=== PATIENT | female | born 1985 | race Caucasian/White ===

== ENCOUNTER 2017-06-25 18:48 | Emergency (ER) | payer MEDICAID, OTHER | END 2017-06-25 20:53 | disposition left against medical advice (07) | LOC: ER 18:49 | DX: R11.10 Vomiting, unspecified (principal); Z53.21 Procedure and treatment not carried out due to patient leaving prior to being seen by health care provider ==

== ENCOUNTER 2023-12-01 05:18 | Emergency (ER) | payer MEDICAID ==
[~2023-12-01] VITALS: Ht 154.9 cm; Wt 43.8 kg
[~2023-12-01 05:18] MED LIST: ONDA8TAB9 PO; PANT-47 PO
[2023-12-01 05:22] VITALS: BP 140/92; PULSE 100; RESP 18; TEMP 98.4; O2SAT 97
[2023-12-01] MEDS ORDERED: normal saline 1000ML IV soln IVB ONE (05:30)
[2023-12-01 07:33] LABS: BASOPHILS # (AUTO) 0.1 X10'3 (0-0.2); BASOPHILS % (AUTO) 0.6 % (0-1); EOSINOPHILS # (AUTO) 0.1 X10'3 (0-0.9); EOSINOPHILS % (AUTO) 0.7 % (0-6); HEMATOCRIT 41.6 % (35.0-45.0); HEMOGLOBIN 13.9 g/dl (12.0-16.0); LYMPHOCYTES # (AUTO) 1.7 X10'3 (1.1-4.8); LYMPHOCYTES % (AUTO) 15.3 % (21-51); MEAN CORPUSCULAR HEMOGLOBIN 31.6 PG (27.0-31.0); MEAN CORPUSCULAR HGB CONC 33.4 g/dL (33.0-36.5); MEAN CORPUSCULAR VOLUME 94.8 FL (78-98); MEAN PLATELET VOLUME 7.3 FL (7.4-10.4); MONOCYTES # (AUTO) 0.7 X10'3 (0-0.9); MONOCYTES % (AUTO) 6.6 % (2-12); NEUTROPHILS # (AUTO) 8.4 X10'3 (1.8-7.7); NEUTROPHILS % (AUTO) 76.8 % (42-75); PLATELET COUNT 526 X10'3 (140-440); RED BLOOD COUNT 4.39 X10'6 (4.20-5.60); RED CELL DISTRIBUTION WIDTH 14.3 % (11.5-14.5)
[2023-12-01 07:43] LABS: ALANINE AMINOTRANSFERASE 19 U/L (12-78); ALBUMIN 4.3 G/DL (3.4-5.0); ALBUMIN/GLOBULIN RATIO 1.3 (1.1-1.5); ALKALINE PHOSPHATASE 72 IU/L (46-116); ANION GAP 10 (8-16); ASPARTATE AMINO TRANSFERASE 12 U/L (10-37); BILIRUBIN,TOTAL 0.7 MG/DL (0.1-1.0); BLOOD UREA NITROGEN 17 MG/DL (7-18); BUN/CREATININE RATIO 25.4 (10.0-20.0); CHLORIDE 109 MMOL/L (99-107); CREATININE 0.67 MG/DL (0.40-0.90); GLUCOSE 105 MG/DL (70-104); LIPASE 25 U/L (16-77); POTASSIUM 3.6 MMOL/L (3.5-5.1); SODIUM 144 MMOL/L (135-145); TOTAL CARBON DIOXIDE 25.2 MMOL/L (24-32); TOTAL PROTEIN 7.7 G/DL (6.4-8.2); eCRCL 79 ML/MIN; eGFR > 90 ML/MIN
== END 2023-12-01 08:02 | disposition left against medical advice (07) ==
LOC: ER 05:18
DX: R11.2 Nausea with vomiting, unspecified (principal); R19.7 Diarrhea, unspecified; R10.84 Generalized abdominal pain; Z53.21 Procedure and treatment not carried out due to patient leaving prior to being seen by health care provider
CPT/HCPCS: 36415; 80053; 83690; 85025

== ENCOUNTER 2024-02-10 14:28 | Emergency (ER) | payer MEDICAID ==
[~2024-02-10] VITALS: Ht 152.4 cm; Wt 42.2 kg
[2024-02-10 15:02] VITALS: BP 129/83; PULSE 89; RESP 18; TEMP 97.8; O2SAT 100
== END 2024-02-10 19:03 | disposition left against medical advice (07) ==
LOC: ER 14:28
DX: M79.605 Pain in left leg (principal); Z53.21 Procedure and treatment not carried out due to patient leaving prior to being seen by health care provider

== ENCOUNTER 2024-12-14 07:21 | Inpatient (IN) | payer MEDICAID ==
[~2024-12-14] VITALS: Ht 152.4 cm; Wt 51.4 kg
--- NOTE | 2024-12-14 07:40 | Physician Documentation ---
Addendum CHIEF COMPLAINT/HPI: The patient is a 39-year-old female with a history of cyclic vomiting who rep orts that she woke up about 4:00 a.m. today with nausea, vomiting and severe lower abdominal pain. REVIEW OF SYSTEMS: Constitutional: Denies chills, fatigue, fever, weight gain or weight loss. HEENT: Denies hearing loss, sinus pressure or visual changes. Respiratory: Denies cough, shortness of breath or wheezing. Cardiovascular: Denies chest pain, pain while walking (claudication), edema or palpitations. Gastrointestinal: Nausea, vomiting and lower abdominal pain. Genitourinary: Denies painful urination (dysuria), excessive amount of urine (polyuria) or urinary frequency. Metabolic/Endocrine: Denies cold intolerance, heat intolerance, excessive thirst (polydipsia) or excessive hunger (polyphagia). Neurological: Denies dizziness, extremity numbness, extremity weakness, headaches, seizures or tremors. Psychiatric: Denies anxiety or depression. Integumentary: Denies breast discharge, breast lump, hives, mole change(s), rash or skin lesion. Musculoskeletal: Denies back pain, joint pain, joint swelling or neck pain. Hematologic: Denies easily bleeding, easily bruises, lymphedema or issues with blood clots. Immunologic: Denies food allergies or seasonal allergies. PHYSICAL EXAMINATION: Vitals and nursing note reviewed. Constitutional: General: Patient is awake, alert, oriented x 4 in no acute distress and well appearing. Speech is clear and lucid. Appearance: Normal appearance. Patient is not ill-appearing, toxic-appearing or diaphoretic. HENT: Head: Normocephalic and atraumatic. Mouth/Throat: Mouth: Mucous membranes are moist. Pharynx: Oropharynx is clear. Eyes: General: No scleral icterus. Extraocular Movements: Extraocular movements intact. Pupils: Pupils are equal, round, and reactive to light. Neck: Supple, no Kernig or Brudzinski sign. Cardiovascular: Rate and Rhythm: Normal rate and regular rhythm. Heart sounds: No murmur heard. Pulmonary: Effort: No respiratory distress. Breath sounds: No wheezing, rhonchi or rales. Abdominal: General: There is no distension. Palpations: There is no fluid wave, hepatomegaly or mass. Tenderness: There is moderate lower abdominal tenderness. There is no guarding. Musculoskeletal: General: No swelling or deformity. Skin: Coloration: Skin is not jaundiced. Findings: No erythema or rash. Neurological: Mental Status: Patient is alert. MEDICAL DECISION MAKING: This 39-year-old female with a history of cyclic vomiting presented here 3-1/2 hours ago in his required several doses of opioids. Laboratory studies and CT abdomen pelvis do not show acute findings to account for her pain. 2:04 p.m.: She continues to have intractable abdominal pain and I will get her admitted. Departure Disposition: ADMITTED INPATIENT Admitted to Inpatient Unit: to hospitalist Impression: Primary Impression: Cyclical vomiting Additional Impression: Abdominal pain Condition: [place] Ji MD Dec 14, 2024 07:40
[2024-12-14 07:48] LABS: MEAN PLATELET VOLUME 7.1 FL (7.4-10.4); RED CELL DISTRIBUTION WIDTH 13.7 % (11.5-14.5)
[2024-12-14 07:59] LABS: CREATININE 0.64 MG/DL (0.40-0.90); TOTAL CARBON DIOXIDE 24.5 MMOL/L (24-32); eCRCL 86 ML/MIN; eGFR > 90 ML/MIN
[2024-12-14] MEDS: ondansetron/PF 4mg/2ml inj IV ONE ×2 (08:28→14:30)
[2024-12-14] MEDS: HYDROmorphone inj. 0.5 MG/0.5 ML DISP.SYRIN IV ONE ×3 (08:29→14:30)
[2024-12-14 10:32] LABS: LEUKOCYTE ESTERASE ,URINE NEGATIVE (Neg); NITRITES, URINE NEGATIVE (Neg); OCCULT BLOOD,URINE NEGATIVE (Neg)
[2024-12-14 10:33] LABS: URINE HCG NEGATIVE (NEG)
[2024-12-14 11:08] LABS: UA COLLECTION TYPE CLN CATCH MIDSTREAM
[2024-12-14 11:10] LABS: SQUAMOUS EPITHELIAL CELL,UR MANY /LPF (FEW)
[2024-12-14 11:12] LABS: MUCUS STRANDS FEW /LPF (Neg); RENAL CELLS, URINE MODERATE /HPF
[2024-12-14] MEDS ORDERED: iohexol 300mg/ml 100ml inj. ONE (11:51)
--- NOTE | 2024-12-14 12:34 | RADIOLOGY REPORT ---
Exam: CT CT ABDOMEN PELVIS W/ IV CONTRAST History: Nausea, vomiting and abdominal pain COMPARISON: CT CT ABDOMEN PELVIS on DOS: 12/08/23 Technique: Multidetector spiral CT of the abdomen and pelvis was performed from lung bases to pubic symphysis. Intravenous contrast was administered during this examination. Portal venous imaging was obtained. Axial, coronal and sagittal multiplanar reformats were performed by the technologist on a separate workstation. Radiation Dose : 1. Abdomen/Pelvis: CTDIvol 7.1 mGy, DLP 125.27 mGy*cm. CONTRAST: Type of contrast: Omnipaque 300 Contrast injected: 100 ml Findings: Lung Bases: No acute or significant lung base finding. Normal heart size. No pleural or pericardial effusion. Liver: The liver is normal in size. No focal lesions. Normal hepatic vascular enhancement. Gallbladder and biliary Tree: Unremarkable Spleen: Unremarkable Pancreas: The pancreas is normal in appearance without focal lesions or abnormal enhancement. Adrenal Glands: Unremarkable Kidneys: No hydronephrosis. Bladder: Unremarkable Bowel: The stomach is grossly normal in appearance. Small bowel and colon are normal in caliber and distribution. Normal appendix is visualized in the right lower quadrant without findings of appendicitis. Borderline diffuse colonic wall thickening likely explained by poor distension. Ascites: Absent Lymphadenopathy: No mesenteric, retroperitoneal or periportal lymphadenopathy. Abdominal wall and Mesentery: Unremarkable. Vasculature: The visualized abdominal aorta is normal in size and caliber. Abdominal and pelvic vessels demonstrate normal enhancement. Pelvic Organs: Unremarkable Musculoskeletal: No aggressive focal bony lesions, acute fractures or dislocation. IMPRESSION: Borderline diffuse colonic wall thickening likely explained by poor distension please correlate with any concern for a mild colitis. Otherwise no clear cause for symptoms. Radiation optimization: All CT scans at this facility use at least one of these dose optimization techniques: automated exposure control mA and/or kV adjustment per patient size (includes targeted exams where dose is matched to clinical indication) or iterative reconstruction.
[2024-12-14] MEDS ORDERED: potassium Cl 20 mEq SR tablet PO PRN (15:15)
[2024-12-14] MEDS ORDERED: magnesium sulf-water 2g/50mL 50 ML IV PRN (15:15)
[2024-12-14] MEDS ORDERED: mag hydrox/Alum hydrox/simeth 30ml oral suspension PO PRN (15:15)
[2024-12-14] MEDS ORDERED: magnesium sulf-water 4G/100mL 100 ML IV PRN (15:15)
[2024-12-14] MEDS ORDERED: magnesium Cl slow-release 64mg tablet PO PRN (15:15)
[2024-12-14] MEDS ORDERED: metoclopramide 5 mg/ml inj IV PRN (15:15)
[2024-12-14] MEDS ORDERED: ondansetron/PF 4mg/2ml inj IV PRN (15:15)
[2024-12-14] MEDS ORDERED: HYDROmorphone inj. 0.5 MG/0.5 ML DISP.SYRIN IV PRN (15:15)
[2024-12-14] MEDS ORDERED: magnesium hydroxide 30ml (MOM) UD suspension PO PRN (15:15)
[2024-12-14] MEDS ORDERED: normal saline 1000ml 1,000 ML IV SCH (15:15)
[2024-12-14] MEDS: normal saline 1000ml 1,000 ML IV SCH (15:52)
--- NOTE | 2024-12-14 15:59 | ELECTROCARDIOGRAPH REPORT ---
[facility], [place] Test Date: 2024-12-14 Test Time: 15:55:56 Pat Name: TIM CRISTINA Department: [facility] Patient ID: [facility]-[id number] Room: ED 6 1 Gender: F Climatologist: : [id number] Requested By: INDIA MORRISON Order Number: [id number] Reading MD: Measurements Intervals [place] Rate: 54 P: 36 NE: 110 QRS: 58 QRSD: 111 T: 39 QT: 494 QTc: 469 Interpretive Statements Sinus bradycardia Borderline short NE interval RSR' in V1 or V2, right VCD or RVH Baseline wander in lead(s) V2 Please click the below link to view image of tracing.
--- NOTE | 2024-12-14 16:03 | RADIOLOGY REPORT ---
CHEST RADIOGRAPH Indication: to rule out pneumonia Technique: Single frontal view of the chest was obtained COMPARISON: None FINDINGS: Lines and Tubes: None Lungs: Clear Pleura: No effusion. No pneumothorax. Cardiomediastinal contours: Unremarkable Bones: Unremarkable IMPRESSION: No acute disease.
[2024-12-14] MEDS ORDERED: METF-900 PO (16:19)
[2024-12-14] MEDS ORDERED: EXEM25TA5 PO (16:19)
[2024-12-14 16:23] LABS: URINE AMPHETAMINE SCREEN NEGATIVE (Neg); URINE BARBITUATE SCREEN NEGATIVE (Neg); URINE BENZODIAZEPINES SCREEN NEGATIVE (Neg); URINE CANNABINOID SCREEN POSITIVE (Neg); URINE COCAINE SCREEN NEGATIVE (Neg); URINE METHADONE SCREEN NEGATIVE (Neg); URINE OPIATE SCREEN POSITIVE (Neg); URINE PHENCYCLIDINE SCREEN NEGATIVE (Neg)
--- NOTE | 2024-12-14 16:44 | RADIOLOGY REPORT ---
Exam: DI ABDOMEN,SINGLE VIEW(KUB) Indication: ABD pain Comparison: Contrasted CT scan of the abdomen and pelvis performed earlier same day about 4.5 hours earlier. Technique: Supine portable AP views of the abdomen were performed. Findings: No abnormal bowel dilatation. Gas is present throughout the colon. No abnormal calcifications overlying the urinary tract. There is residual contrast in the urinary tract. There is slight lumbar levoscoliosis. Gallstones and possible wall thickening of the gallbladder fundus are not well characterized here, better characterized on prior CT scan. Impression: 1. No evidence of bowel obstruction. 2. Cholelithiasis and possible gallbladder wall thickening, better characterized on CT scan of the abdomen from earlier same day. Recommend follow-up right upper quadrant ultrasound for better characterization.
[2024-12-14 16:50] LABS: APTT 26 SECONDS (22-32); INR 1.0 INR
[2024-12-14 17:06] LABS: CREATININE 0.65 MG/DL (0.40-0.90); PHOSPHORUS 2.5 MG/DL (2.3-4.5); PRO BRAIN NATRIURETIC PEPTIDE 791 PG/ML (0-125); TOTAL CARBON DIOXIDE 21.9 MMOL/L (24-32); eCRCL 84 ML/MIN; eGFR > 90 ML/MIN
[2024-12-14 17:13] LABS: HCG SERUM QL NEGATIVE
[2024-12-14] MEDS: levoFLOXACIN-Levaquin 500mg/D5 100 ML IV SCH (17:22)
[2024-12-14] MEDS: metroNIDAZOLE-Flagyl 500mg/NS 100 ML IV SCH (17:22)
--- NOTE | 2024-12-14 17:53 | HISTORY AND PHYSICAL-Residence ---
History & Physical Providers to CC Resident Creating Document: INDIA MARRERO, RES ~ History of Present Illness Primary Medical Doctor: Unknown Reason for Admit\Complaint: Abdominal pain and vomiting History of Present Illness A 39-year-old female with past medical history of left breast cancer status post mastectomy and chemotherapy in 2019 presented to ER with chief complaint of abdominal pain and vomiting. Patient stated that she woke up around 4:00 a.m. today morning to go to washroom, and she has gradually progressive, squeezing type of constant RUQ abdominal pain, radiating to epigastric region with severity of 8/10 in intensity associated nausea, multiple episodes of yellow colored vomiting and chills. Patient is able to pass the gas, the last bowel movement was today morning. She denies fever, abdominal distention, blood in vomit, constipation, diarrhea, bleeding per rectum, heart burn, dyspepsia and dyspepsia, chest pain. She denies similar complaint in the past. She denies sick contact or recent travel or recent food intake outside. Allergies: Coded Allergies: No Known Allergies (Unverified , 02/10/24) Home Medications Home Medications Active Zofran Odt (Ondansetron) 8 Mg Tab.rapdis 8 Mg PO QID PRN Reported Exemestane 25 Mg Tablet 25 Mg PO DAILY Metformin ER* (Metformin HCl) 500 Mg Tab.sr.24h 1 Tab PO DAILY Past Medical History Past Medical History Left breast cancer with status post mastectomy and chemotherapy in 2019 Past Surgical History Surgical History Comment Left breast cancer with status post mastectomy and chemotherapy in 2019 Past Social History Social History Comment Patient quit marijuana 1 year ago Smoking: Non-Smoker Alcohol Use: None Drug Use: None, Marijuana Lives In: Home ROS ROS Constitutional: Reports chills, No fever, dizziness, weight gain or loss, night sweats Eyes: No pain, erythema, discharge, blurring of vision ENT: No sore throat, epistaxis, tinnitus Cardiovascular:No chest pain, palpitations, syncope, lower extremity edema, paroxysmal nocturnal dyspnea Respiratory: No Shortness of breath and cough, No hemoptysis. Gastrointestinal: Reports Abdominal pain, vomiting,nausea and no melena. Normal appetite. No constipation,diarrhea, hematemesis, Musculoskeletal: No swelling or edema of extremities. Integumentary: No change in skin, hair, nails. No swelling, bruising, abrasions Neurologic: No weakness,No headache, neck pain, numbness or tingling of the extremities, Psychiatric: No delusions, depression, loss of interest in normal activity or change in sleep pattern, hallucinations, suicidal ideations Endocrine: No fatigue, no weakness. polydipsia, polyuria, change in appetite, heat or cold intolerance, sweating, dry skin Hematological: No bleeding, petechiae, bruising Allergies: No asthma or urticaria Exam Vitals: Vital Signs Date Time Temp Pulse Resp B/P (MAP) Pulse Ox O2 Delivery O2 Flow Rate FiO2 12/14/24 17:28 58 19 127/70 (89) 100 0 12/14/24 07:23 96.7 General: Awake , alert and oriented to time,place, person, acute distress HEENT: Atraumatic, normocephalic, PERRLA, EOMI, anicteric sclera ; pink conjunctiva, moist mucos membranes Neck: Trachea midline. Supple, normal range of motion, no JVD, no lymphadenopathy Chest and Respiratory: Equal breath sounds bilaterally, no tachypnea, wheezing, ronchi,rubs .Chest wall is symmetric and without deformity. Cardiac: S1, S2 heard,Regular rate and rhythm, no murmurs heard. Abdomen: Soft, RUQ mild tenderness on palpation, No guarding or rigidity, Zamarripa's sign negative. normal bowel sounds x4 quadrant, no hepatosplenomegaly MSK: Range of motion of all extremities are normal. There is no joint pain or joint swelling or joint erythema. There is no muscle pain or tenderness or swelling. Extremities: warm, well-perfused, No cyanosis, clubbing, 2+ pulses felt Neurological: Speech is clear, alert, and oriented x 4. No sensory or motor deficits. Cranial nerves II-XII intact. Skin: Warm and dry Diagnostic Data Last Recorded Lab Results: 12/14/24 0735 12/14/24 1612 Diagnostic Data: Laboratory Tests Test 12/14/24 16:12 Prothrombin Time 10.7 SECONDS (9.0-12.0) INR International Normalized Ratio 1.0 INR Activated Partial Thromboplast Time 26 SECONDS (22-32) Coagulation Comments Advance Care Planning Advanced Care plannin - 30 Minutes Additional Plan Possible Symptomatic cholelithiasis Patient has RUQ abd pain, nausea, vomiting Borderline diffuse colonic wall thickening likely explained by poor distension please correlate with any concern for a mild colitis. KUB abdomen showed Cholelithiasis and possible gallbladder wall thickening. WBC are in normal limits Lipase is 25, AST, ALT and ALP are in normal limits BNP 791 beta HCG is negative Urinalysis normal Urine toxicology positive for opiates and cannabinoids Vitals are stable IV Protonix 40 mg q.12h Pain management with IV morphine 1 mg and Dilaudid 1 mg q.4h NPO for now Follow up with ultrasound abdomen Colitis likely bacterial Started on IV levofloxacin and IV Flagyl Mild metabolic acidosis Bicarbonate is 21.9 Code status: Full code DVT prophylaxis : Heparin GI prophylaxis: Protonix Nutrition: NPO for now Line/tube: PIV Analgesia/sedation: Dilaudid Disposition: Continue medical management Resident attestation The above note has been reviewed and supervised by a senior resident PGY3 Patient was seen, examined and discussed with the attending physician Jermaine Marrero MD Internal Medicine Resident, PGY 1 Date of Service: Dec 14, 2024 Billing Provider: DANITZA ARMSTRONG MD Common Visit Codes: [id number] INP/OBS CARE (HIGH) Secondary Visit Codes: [id number] CARE PLAN 30 MINUTES INDIA MARRERO, RES Dec 14, 2024 17:53 DANITZA ARMSTRONG MD Dec 15, 2024 23:00
[2024-12-14 20:00] VITALS: RESP 22; O2SAT 100
[2024-12-14] MEDS: docusate sod 100mg capsule PO SCH (20:00)
[2024-12-14] MEDS: heparin, porcine 5000 units/ml vial SQ SCH (20:00)
[2024-12-14] MEDS ORDERED: heparin, porcine 5000 units/ml vial SQ SCH (20:00)
[2024-12-14] MEDS: K and/or MAG REPLACEMENT MC SCH (20:00)
[2024-12-14] MEDS: ketorolac trometh 30MG/ML vial 30 MG/ML VIAL IM ONE (20:07)
[2024-12-14] MEDS: potassium Cl 20 mEq SR tablet PO PRN (20:17)
--- NOTE | 2024-12-14 20:24 | RADIOLOGY REPORT ---
INDICATION: ABDOMEN PAIN, ABNORMAL XRAY TECHNIQUE: Multiple real-time sonographic images were obtained of the right upper quadrant. COMPARISON: None FINDINGS: Hepatic echogenicity is normal. The liver measures 14.5 cm. The common duct measures 6 mm. Multiple echogenic shadowing stones in the gallbladder. Wall thickness measures 3.7 mm. Reportedly positive sonographic Zamarripa's sign. The right kidney measures 9.9 cm. No visualized hydronephrosis, stone, or lesion. The pancreas is not well visualized due to overlying bowel gas. No visualized ascites. IMPRESSION: 1. Exam consistent with acute calculus cholecystitis.
[2024-12-14 22:00] VITALS: BP 114/56; PULSE 55; RESP 16; TEMP 97.2; O2SAT 98
[2024-12-15] VITALS (20 sets, daily range): BP systolic 110–143; BP diastolic 68–109; PULSE 56–97; RESP 12–21; TEMP 97.8–98.6; O2SAT 95–100
[2024-12-15 04:51] LABS: MEAN PLATELET VOLUME 7.3 FL (7.4-10.4); RED CELL DISTRIBUTION WIDTH 14.2 % (11.5-14.5)
[2024-12-15 05:09] LABS: CHOL/HDL RATIO 6.7 (0.00-4.99); CREATININE 0.51 MG/DL (0.40-0.90); LDL CHOLESTEROL 170 MG/DL (50-100); TOTAL CARBON DIOXIDE 20.3 MMOL/L (24-32); eCRCL 107 ML/MIN; eGFR > 90 ML/MIN
[2024-12-15] MEDS: potassium Cl 40MEQ/1/2NS 520ml 520 ML IV PRN (08:54)
[2024-12-15] MEDS ORDERED: normal saline 1000ml 1,000 ML IV ONE (09:00)
[2024-12-15] MEDS: normal saline 500ml IV soln 500 ML IV ONE (10:08)
[2024-12-15] MEDS ORDERED: BUPIVAcaine 2.5mg/ml inj 50ml vial (contains preservative) ONE (14:49)
[2024-12-15] MEDS ORDERED: LIDOcaine 1% 30ml preserv. free vial ONE (14:49)
[2024-12-15] MEDS ORDERED: INDOCYANINE GREEN 25 MG/10 ML VIAL IV ONE (14:49)
--- NOTE | 2024-12-15 15:28 | PROGRESS NOTE- Residence ---
Progress Note - Resident Providers to CC Resident Creating Document: INDIA MARRERO, RES ~ Central Line/PICC still needed: N\A Mccann-Non Protocol Mccann Indications Met/Not Met: F/C Indications Not Met Antibiotic Timeout Antibiotic Ordered?: Yes Subjective Patient was seen at bedside. Patient complains of severe right upper quadrant pain severity of 8/10 in intensity. Vomiting and nausea improved with IV Reglan. Patient scheduled for cholecystectomy today evening by Dr. Brink Objective Vital Signs Date Time Temp Pulse Resp B/P (MAP) Pulse Ox O2 Delivery O2 Flow Rate FiO2 12/15/24 14:59 87 16 100 12/15/24 11:00 98.0 124/85 (98) Room Air 12/15/24 10:30 0.0 Result Diagram: 12/15/2443912/15/24439 Awake , alert and oriented to time,place, person, acute distress HEENT: Atraumatic, normocephalic, PERRLA, EOMI, anicteric sclera ; pink conjunctiva, moist mucos membranes Neck: Trachea midline. Supple, normal range of motion, no JVD, no lymphadenopathy Chest and Respiratory: Equal breath sounds bilaterally, no tachypnea, wheezing, ronchi,rubs .Chest wall is symmetric and without deformity. Cardiac: S1, S2 heard,Regular rate and rhythm, no murmurs heard. Abdomen: Soft, RUQ moderate tenderness on palpation, No guarding or rigidity, Zamarripa's sign negative. normal bowel sounds x4 quadrant, no hepatosplenomegaly MSK: Range of motion of all extremities are normal. There is no joint pain or joint swelling or joint erythema. There is no muscle pain or tenderness or swelling. Extremities: warm, well-perfused, No cyanosis, clubbing, 2+ pulses felt Neurological: Speech is clear, alert, and oriented x 4. No sensory or motor deficits. Cranial nerves II-XII intact. Skin: Warm and dry Coagulation Studies Laboratory Tests Test 12/14/24 16:12 Prothrombin Time 10.7 SECONDS (9.0-12.0) INR International Normalized Ratio 1.0 INR Activated Partial Thromboplast Time 26 SECONDS (22-32) Coagulation Comments Advance Care Planning Advanced Care plannin - 30 Minutes Assessment Assessment A 39 years old female patient with no significant past medical history admitted with acute calculous cholecystitis. Patient scheduled for cholecystectomy for today evening by Dr. Brink Plan Plan Acute calculous cholecystitis Patient has RUQ abd pain, nausea, vomiting Borderline diffuse colonic wall thickening likely explained by poor distension please correlate with any concern for a mild colitis. KUB abdomen showed Cholelithiasis and possible gallbladder wall thickening. WBC are in normal limits Lipase is 25, AST, ALT and ALP are in normal limits BNP 791 beta HCG is negative Urinalysis normal Urine toxicology positive for opiates and cannabinoids Vitals are stable IV Protonix 40 mg q.12h Pain management with IV morphine 1 mg and Dilaudid 1 mg q.4h NPO for now Follow up with ultrasound abdomen 12/15/24: Ultrasound showed acute calculus cholecystitis. Pain management with Toradol and Dilaudid 2 mg q.4h Patient scheduled for cholecystectomy today evening Colitis likely bacterial Continue IV levofloxacin and IV Flagyl Mild metabolic acidosis Bicarbonate is 21.9 Code status: Full code DVT prophylaxis : Scds GI prophylaxis: Protonix Nutrition: NPO for now Line/tube: PIV Analgesia/sedation: Dilaudid/Toradal Disposition: Continue medical management Resident attestation The above note has been reviewed and supervised by a senior resident PGY3 Patient was seen, examined and discussed with the attending physician Jermaine Marrero MD Internal Medicine Resident, PGY 1 Date of Service: Dec 15, 2024 Billing Provider: DANITZA ARMSTRONG MD Common Visit Codes: [id number] INP/OBS CARE(HIGH) INDIA MARRERO, RES Dec 15, 2024 15:28 DANITZA ARMSTRONG MD Dec 15, 2024 23:01
--- NOTE | 2024-12-15 15:28 | CONSULTATION REPORT ---
History of Present Illness Providers to CC CC: ADRIENNE COONEY MD ~ Reason for Admit\Admit Dx: Acute calculous cholecystitis Refering MD: Unknown History of Present Illness 39-year-old woman presented yesterday with epigastric and right upper quadrant abdominal pain that radiated the back with nausea and vomiting. Workup included an ultrasound that showed cholelithiasis with sonographic Zamarripa's sign. She was admitted and surgical consultation requested. Patient continues to have epigastric and right upper quadrant abdominal pain. Zamarripa's sign. Leukocytosis. Allergies: Coded Allergies: No Known Allergies (Unverified , 02/10/24) Home Medications Home Medications Active Zofran Odt (Ondansetron) 8 Mg Tab.rapdis 8 Mg PO QID PRN Reported Exemestane 25 Mg Tablet 25 Mg PO DAILY Metformin ER* (Metformin HCl) 500 Mg Tab.sr.24h 1 Tab PO DAILY Past Medical History Medical History Comment Type 2 diabetes Past Surgical History Surgical History Comment None reported Past Family History Family History Comment Not applicable Past Social History Social History Comment Not applicable Physical Exam Last Vital Signs Recorded: Temperature: 98.0, Source: Oral, Heart Rate: 87, Respiratory Rate: 16, BP: 124/85, Pulse Oximetry: 100, Weight: 51.360 General Appearance: alert, WD/WN EENT: PERRL/EOMI; No: scleral icterus (R), scleral icterus (L) Neck: normal inspection, full range of motion, supple Respiratory: lungs clear Cardiovascular: normal peripheral pulses, regular rate, rhythm Gastrointestinal Softly distended No palpable masses or hernias Epigastric and right upper quadrant tenderness to palpation with subtle Zamarripa's sign Rectal: deferred Back: normal inspection, no CVA tenderness Extremities: no edema Neurologic: oriented x4 Psychiatric: normal mood/affect; No: anxiety Skin: normal color Lymphatic: no adenopathy Results Diagram Lab Result Diagram: 12/15/2443912/15/24439 Assessment/Plan Problems/Diagnosis: (1) Acute calculous cholecystitis Assessment & Plan: + the risks, benefits, and alternatives to a robotic assisted, laparoscopic possible open cholecystectomy were discussed with the patient. Risks include, but are not limited to, bleeding, infection, injury to intra-abdominal structures, injury to the biliary tree, postoperative bile leak and retained common bile duct stone. Patient verbalized understanding and wishes to proceed with surgery. We will do so today as soon as possible. ADRIENNE COONEY MD Dec 15, 2024 15:28
[2024-12-15] MEDS ORDERED: midazolam 1 mg/ML 2ml injection ONE (15:29)
[2024-12-15] MEDS ORDERED: fentaNYL/PF 50MCG/1 ML 2ML syringe ONE (15:29)
[2024-12-15] MEDS ORDERED: propofol inj 20 ML IV ONE (15:31)
[2024-12-15] MEDS ORDERED: rocuronium 10mg/ml inj IV ONE (15:31)
[2024-12-15] MEDS ORDERED: dexamethasone sod phosphate 4mg/ml inj. ONE (15:39)
[2024-12-15] MEDS: INDOCYANINE GREEN 25 MG/10 ML VIAL IV ONE (16:00)
[2024-12-15] MEDS ORDERED: HYDROmorphone/PF 0.2 MG/ML SYRINGE IV PRN (16:05)
[2024-12-15] MEDS ORDERED: hydrALAZINE 20mg/ml inj. IV PRN (16:05)
[2024-12-15] MEDS ORDERED: labetalol 20mg/4ml (5mg/ml) syringe IV PRN (16:05)
[2024-12-15] MEDS ORDERED: fentaNYL/PF 50MCG/1 ML 2ML syringe IV PRN (16:05)
[2024-12-15] MEDS ORDERED: ondansetron/PF 4mg/2ml inj IV PRN ×2 (16:05→17:15)
[2024-12-15] MEDS ORDERED: ondansetron/PF 4mg/2ml inj ONE (16:47)
[2024-12-15] MEDS ORDERED: glycopyrrolate 0.2mg/ml inj ONE (16:47)
[2024-12-15] MEDS ORDERED: morphine 10mg/ml inj. ONE (17:05)
[2024-12-15] MEDS ORDERED: HYDROcodone/acetaminophen 5mg/325mg tablet PO PRN (17:15)
[2024-12-15] MEDS ORDERED: PCA WASTE DOCUMENTATION 1 MG ML MC SCH (17:15)
[2024-12-15] MEDS: acetaminophen 1,000mg/100ml IV 100 ML IV PRN (17:15)
[2024-12-15] MEDS: HYDROmorphone/PF 0.2 MG/ML SYRINGE IV PRN (17:22)
[2024-12-15] MEDS: ketorolac trometh 30MG/ML vial 30 MG/ML VIAL IV PRN (17:24)
--- NOTE | 2024-12-15 17:35 | OPERATIVE REPORT ---
Operative Report Providers to CC CC: COLLINS COONEY MD ~ Date of Procedure: Dec 15, 2024 Pre-Operative Diagnosis: Acute calculous cholecystitis Post-Operative Diagnosis SAME as PRE-Op Procedure Performed Robotic assisted, laparoscopic cholecystectomy Surgeon: Collins Cooney MD FACS Beekeeper Farmer None Anesthesiologist: Atif Carrera Type of Anesthesia: General Findings: Contracted gallbladder Suspicious looking neoplasm on the anterior wall of the gallbladder measuring about 1 cm in diameter Critical view of safety obtained and confirmed using fluorescent cholangiography/firefly Wound Class II Complications None Prosthetics\Implants used: None Estimated Blood Loss: 10 cc Specimen Removed: Gallbladder with suspicious looking neoplasm Description of Procedure: Patient was brought to the operating room and identified by the nursing staff and the attending physician. Patient was placed supine and general anesthesia w as induced. A supraumbilical, midline incision was made, long enough to accommodate a 12 mm Gonzalez port. Gonzalez technique was used to gain entry into the abdomen. Stay sutures were placed in the Gonzalez port anchored to the fascia. Abdomen was insufflated without incident. Laparoscope was inserted and the abdomen surveyed. Secondary, 8.5 mm robotic trochars were placed in the left upper quadrant and right lateral abdomen. Robotic arm was docked to the patient. Robotic instruments were guided intra- abdominally under laparoscopic visualization. Gallbladder was readily identified. On the anterior aspect of the gallbladder near the fundus, there was a suspicious looking neoplasm the measured about 1 cm in diameter. There were no other gross findings suspicious for metastatic disease. There was an area of the fundus that I was able to grasp to retract the gallbladder. Fundus of the gallbladder was grasped and retracted over the dome of the liver. Infundibulum was retracted towards the right lower quadrant. Firefly technology was used to obtain a fluorescent cholangiogram and visualize the pertinent anatomy. Cystic duct was clearly visualized, however, it appeared to be behind the infundibulum and gallbladder was nonfilling with a contrast. Gallbladder was initially mobilized from a top-down approach taking care to avoid any rupture or disruption of the area near the suspicious neoplasm. Once the infundibulum was reached, on the posterior aspect, the right hepatic artery had a tortuous loop that was somewhat adherent to the infundibulum. There appeared to be an impacted large stone in the gallbladder neck. I was able to dissect the anterior and posterior branches of the cystic artery away from the gallbladder to the level of the loop of right hepatic artery. I was able to circumferentially dissect these and place hemostatic clips on them. The hepatic artery was then dissected away from the gallbladder neck. Subsequently I was able to circumferentially dissect cystic duct. Fluorescent cholangiogra phy/firefly revealed filling of the proximal cystic duct, however, the distal cystic duct and neck of the gallbladder did not fill. Clips were placed in the cystic duct divided. Gallbladder was set aside and fluorescent cholangiogram of the gallbladder fossa was used to confirm no evidence of bile leak. Gallbladder was placed in a laparoscopic retrieval bag. Secondary trochars were removed and the abdomen allowed to deflate. Gonzalez port was removed with the specimen in its retrieval bag. Fascia at the umbilical port site was closed with 0 Vicryl sutures. Skin was closed with 4-0 Monocryl sutures in a subcuticular fashion. About 40 cc of local anesthetic was used during the case. Sterile dressings were applied. Patient was awakened and taken to the postanesthesia care unit in stable condition. Counts repoted as correct: Yes COLLINS COONEY MD Dec 15, 2024 17:35
[2024-12-15] MEDS: fentaNYL/PF 50MCG/1 ML 2ML syringe IV PRN (17:39)
[2024-12-15] MEDS: metroNIDAZOLE-Flagyl 500mg/NS 100 ML IV SCH (19:52)
[2024-12-15] MEDS: ringers solution, lacted 1,000 ML IV SCH (19:54)
[2024-12-15] MEDS: HYDROcodone/acetaminophen 10/325mg tab PO PRN (22:29)
[2024-12-16] VITALS (7 sets, daily range): BP systolic 122–148; BP diastolic 70–90; PULSE 50–68; RESP 16–24; TEMP 97.8–98.4; O2SAT 99–100
[2024-12-16 05:07] LABS: MEAN PLATELET VOLUME 7.2 FL (7.4-10.4); RED CELL DISTRIBUTION WIDTH 14.4 % (11.5-14.5)
[2024-12-16 05:13] LABS: CREATININE 0.55 MG/DL (0.40-0.90); TOTAL CARBON DIOXIDE 24.1 MMOL/L (24-32); eCRCL 100 ML/MIN; eGFR > 90 ML/MIN
[2024-12-16] MEDS ORDERED: HYDROcodone/acetaminophen 10/325mg tab PO PRN (10:20)
--- NOTE | 2024-12-16 11:41 | PROGRESS NOTE- Residence ---
Progress Note - Resident Providers to CC Resident Creating Document: INDIA MARRERO, RES ~ Central Line/PICC still needed: N\A Mccann-Non Protocol Mccann Indications Met/Not Met: F/C Indications Not Met Antibiotic Timeout Antibiotic Ordered?: Yes Subjective Patient was seen at bedside. Patient underwent cholecystectomy yesterday. Patient tolerated the procedure well. Patient pass the gas, but not pass the stool. Patient endorses that abdominal pain of 7/10 in intensity which was relieving with pain medication. She denies nausea and vomiting. Objective Vital Signs Date Time Temp Pulse Resp B/P (MAP) Pulse Ox O2 Delivery O2 Flow Rate FiO2 12/16/24 11:06 18 12/16/24 07:42 Room Air 12/16/24 07:40 99 12/16/24 07:00 98.4 65 125/72 (89) 12/15/24 21:55 0.0 21 Result Diagram: 12/16/249 12/16/249 Awake , alert and oriented to time,place, person, not in distress HEENT: Atraumatic, normocephalic, PERRLA, EOMI, anicteric sclera ; pink conjunctiva, moist mucos membranes Neck: Trachea midline. Supple, normal range of motion, no JVD, no lymphadenopathy Chest and Respiratory: Equal breath sounds bilaterally, no tachypnea, wheezing, ronchi,rubs .Chest wall is symmetric and without deformity. Cardiac: S1, S2 heard,Regular rate and rhythm, no murmurs heard. Abdomen: Soft, mild tenderness on palpation, No guarding or rigidity, Zamarripa's sign negative. normal bowel sounds x4 quadrant, no hepatosplenomegaly MSK: Range of motion of all extremities are normal. There is no joint pain or joint swelling or joint erythema. There is no muscle pain or tenderness or swelling. Extremities: warm, well-perfused, No cyanosis, clubbing, 2+ pulses felt Neurological: Speech is clear, alert, and oriented x 4. No sensory or motor deficits. Cranial nerves II-XII intact. Skin: Warm and dry Coagulation Studies Laboratory Tests Test 12/14/24 16:12 Prothrombin Time 10.7 SECONDS (9.0-12.0) INR International Normalized Ratio 1.0 INR Activated Partial Thromboplast Time 26 SECONDS (22-32) Coagulation Comments Assessment Assessment A 39 years old female patient with no significant past medical history admitted with acute calculous cholecystitis. Patient underwent laparoscopic cholecystectomy. Plan Plan Acute calculous cholecystitis s/p robotic assisted, laparoscopic cholecystectomy by Dr. Collins Brink on 12/15/2024 Patient has RUQ abd pain, nausea, vomiting Borderline diffuse colonic wall thickening likely explained by poor distension please correlate with any concern for a mild colitis. KUB abdomen showed Cholelithiasis and possible gallbladder wall thickening. WBC are in normal limits Lipase is 25, AST, ALT and ALP are in normal limits BNP 791 beta HCG is negative Urinalysis normal Urine toxicology positive for opiates and cannabinoids Vitals are stable IV Protonix 40 mg q.12h Pain management with IV morphine 1 mg and Dilaudid 1 mg q.4h NPO for now Follow up with ultrasound abdomen 12/15/24: Ultrasound showed acute calculus cholecystitis. Pain management with Toradol and Dilaudid 2 mg q.4h Patient scheduled for cholecystectomy today evening 12/16/24: Postoperative day 1 Patient tolerated the procedure well. Suspicious of neoplasm on the anterior wall of the gallbladder measuring about 1 cm in diameter & advised to follow up with Dr. Guadalupe back Patient passing the gas, no bowel movement yet Pain management with 2 tablets of Wray 10/325 q.4h p.r.n. and Dilaudid 2 mg q.4h IV Protonix 40 mg q.12h Started on regular diet as per Dr. Brink recommendation Colitis likely bacterial Continue IV levofloxacin and IV Flagyl Mild metabolic acidosis, resolved Treated with IV fluids Code status: Full code DVT prophylaxis : Scds GI prophylaxis: Protonix Nutrition: Regular diet Line/tube: PIV Analgesia/sedation: Wray/Dilaudid Disposition: Patient underwent laparoscopic cholecystectomy, patient tolerated the procedure well. Possible discharge in next 24-48 hours. Resident attestation The above note has been reviewed and supervised by a senior resident PGY3 Patient was seen, examined and discussed with the attending physician Jermaine Marrero MD Internal Medicine Resident, PGY 1 Date of Service: Dec 16, 2024 Billing Provider: DANITZA ARMSTRONG MD Common Visit Codes: [id number] INP/OBS CARE(HIGH) INDIA MARRERO, RES Dec 16, 2024 11:41 DANITZA ARMSTRONG MD Dec 17, 2024 06:58
[2024-12-16] MEDS ORDERED: oxyCODONE/APAP 5-325mg tablet PO PRN (15:00)
--- NOTE | 2024-12-16 15:21 | PROGRESS NOTE ---
Progress Note Dictate Providers to CC ~ Progress Note: Subsequent surgical care on a 39-year-old woman who is postoperative day 1, status post robotic assisted, laparoscopic cholecystectomy for acute calculous cholecystitis Still having quite a bit of pain today requiring IV pain medication Pathology pending Tolerating clear liquids Okay for regular diet Okay to shower Safe for discharge when medically clear and pain adequately controlled Antibiotic Ordered?: No Objective Vitals Vital Signs Date Time Temp Pulse Resp B/P (MAP) Pulse Ox O2 Delivery O2 Flow Rate FiO2 12/16/24 14:34 20 12/16/24 07:42 Room Air 12/16/24 07:40 99 12/16/24 07:00 98.4 65 125/72 (89) 12/15/24 21:55 0.0 21 Lab Results: 12/16/24 0439 12/16/24 0439 Coagulation Studies Laboratory Tests Test 12/14/24 16:12 Prothrombin Time 10.7 SECONDS (9.0-12.0) INR International Normalized Ratio 1.0 INR Activated Partial Thromboplast Time 26 SECONDS (22-32) Coagulation Comments Problem\Assessment\Plan Problems/Diagnosis: (1) Acute calculous cholecystitis ADRIENNE COONEY MD Dec 16, 2024 15:21
[2024-12-17 05:00] VITALS: BP 143/81; PULSE 85; RESP 22; TEMP 98.4; O2SAT 100
[2024-12-17 06:00] LABS: MEAN PLATELET VOLUME 7.5 FL (7.4-10.4); RED CELL DISTRIBUTION WIDTH 14.3 % (11.5-14.5)
[2024-12-17 06:17] LABS: CREATININE 0.57 MG/DL (0.40-0.90); TOTAL CARBON DIOXIDE 25.5 MMOL/L (24-32); eCRCL 96 ML/MIN; eGFR > 90 ML/MIN
[2024-12-17] MEDS: pantoprazole 40mg Tablet.DR PO SCH (07:15)
[2024-12-17 08:00] VITALS: RESP 22; O2SAT 100
[2024-12-17] MEDS ORDERED: OXYC-150 PO (11:51)
--- NOTE | 2024-12-17 13:19 | DISCHARGE SUMMARY-Residence ---
Discharge Summary Providers to Resident Creating Document: NAHUNDANIELRIRICHRISTALASIA, RES ~ Discharge Summary Admission Diagnosis: Acute calculous cholecystitis Hospital Course DATE OF ADMISSION: 12/14/2024 DATE OF DISCHARGE: 12/17/2024 Discharge Diagnosis\Comment: Acute calculous cholecystitis, status post laparoscopic cholecystectomy with Dr. Brink on 12/15/2024 Left breast cancer status post mastectomy and chemotherapy in 2019 Prediabetic with a hemoglobin A1c level of 5.8 Operations\Procedures: Acute calculous cholecystitis, status post laparoscopic cholecystectomy with Dr. Brink on 12/15/2024 Consultants: Dr. Brink, surgeon Complications: None Condition on DC: Stable New Medications: Oxycodone HCl/Acetaminophen (Percocet 10-325 mg Tablet) 10 Mg-325 Mg Tablet 1 TAB PO Q6H PRN for pain for 5 Days, #20 TAB 0 Refills Continued Medications: Exemestane (Exemestane) 25 Mg Tablet 25 MG PO DAILY, TAB Ondansetron (Zofran Odt) 8 Mg Tab.rapdis 8 MG PO QID PRN for nausea/vomiting, #12 TAB Discontinued Medications: Metformin Hcl* (Metformin ER*) 500 Mg Tab.sr.24h 1 TAB PO DAILY, TAB Discharge Summary: History of present illness: A 39-year-old female with past medical history of left breast cancer status post mastectomy and chemotherapy in 2019 presented to ER with chief complaint of abdominal pain and nausea/ vomiting squeezing type of constant RUQ abdominal pain, radiating to epigastric region with severity of 8/10 in intensity. She denies fever, abdominal distention, hematemesis, constipation, diarrhea, bleeding per rectum, heart burn, dyspepsia and dyspepsia, chest pain. She denies similar complaint in the past. She denies sick contact or recent travel or recent food intake outside. Hospital course: During the hospitalization she was diagnosed with acute calculous cholecystitis by ultrasound abdomen. She underwent laparoscopic cholecystectomy with Dr. Brink on 12/15/2024. She tolerated the surgery well. She was started liquid diet and progressed the diet as she tolerated. Pain was controlled with Percocet 10-325. A small growth was found in her gallbladder, which is which isn't histopathology, awaiting reports. The patient is passing gas, not passed stools yet. She is symptomatically better and hemodynamically stable and hence being discharged. Vital Signs Date Time Temp Pulse Resp B/P (MAP) Pulse Ox O2 Delivery O2 Flow Rate FiO2 12/17/24 13:41 17 12/17/24 08:00 100 Room Air 0.0 12/17/24 05:00 98.4 85 143/81 (101) 12/15/24 21:55 21 Laboratory Tests Test 12/15/24 14:55 12/16/24 04:39 12/17/24 04:53 Glucometer 111 mg/dl White Blood Count 11.0 X10'3 8.6 X10'3 Red Blood Count 3.65 X10'6 3.87 X10'6 Hemoglobin 11.2 g/dl 12.1 g/dl Hematocrit 33.9 % 35.6 % Mean Corpuscular Volume 92.9 FL 92.1 FL Mean Corpuscular Hemoglobin 30.6 PG 31.3 PG Mean Corpuscular Hemoglobin Concent 32.9 g/dL 34.0 g/dL Red Cell Distribution Width 14.4 % 14.3 % Platelet Count 334 X10'3 354 X10'3 Mean Platelet Volume 7.2 FL 7.5 FL Neutrophils (%) (Auto) 81.4 % 67.1 % Lymphocytes (%) (Auto) 12.4 % 24.3 % Monocytes (%) (Auto) 6.0 % 7.9 % Eosinophils (%) (Auto) 0 % 0.3 % Basophils (%) (Auto) 0.2 % 0.4 % Neutrophils # (Auto) 8.9 X10'3 5.7 X10'3 Lymphocytes # (Auto) 1.4 X10'3 2.1 X10'3 Monocytes # (Auto) 0.7 X10'3 0.7 X10'3 Eosinophils # (Auto) 0.0 X10'3 0.0 X10'3 Basophils # (Auto) 0.0 X10'3 0.0 X10'3 CBC Comment Sodium Level 142 MMOL/L 145 MMOL/L Potassium Level 3.7 MMOL/L 3.1 MMOL/L Chloride Level 111 MMOL/L 111 MMOL/L Carbon Dioxide Level 24.1 MMOL/L 25.5 MMOL/L Anion Gap 7 9 Blood Urea Nitrogen 7 MG/DL 6 MG/DL Creatinine 0.55 MG/DL 0.57 MG/DL Estimated GFR/1.73 m2 > 90 ML/MIN > 90 ML/MIN BUN/Creatinine Ratio 12.7 10.5 Glucose Level 119 MG/DL 96 MG/DL Calcium Level 8.0 MG/DL 7.9 MG/DL Albumin 3.1 G/DL 3.3 G/DL Chemistry Comments Imaging: Abdominal and pelvis CT: Borderline diffuse colonic wall thickening likely explained by poor distension please correlate with any concern for a mild colitis. Chest x-ray: No acute disease Abdominal x-ray: 1. No evidence of bowel obstruction. 2. Cholelithiasis and possible gallbladder wall thickening, better characterized on CT scan of the abdomen from earlier same day. Abdominal ultrasound: Exam consistent with acute calculus cholecystitis. Physical examination on discharge: Awake , alert and oriented to time,place, person, not in distress HEENT: Atraumatic, normocephalic, PERRLA, EOMI, anicteric sclera ; pink conjunctiva, moist mucos membranes Neck: Trachea midline. Supple, normal range of motion, no JVD, no lymphadenopathy Chest and Respiratory: Equal breath sounds bilaterally, no tachypnea, wheezing, ronchi,rubs .Chest wall is symmetric and without deformity. Cardiac: S1, S2 heard,Regular rate and rhythm, no murmurs heard. Abdomen: Soft, surgical site clean, bandages not soaked. mild tenderness on superficial palpation, No guarding or rigidity, Zamarripa's sign negative. normal bowel sounds x4 quadrant, no hepatosplenomegaly MSK: Range of motion of all extremities are normal. There is no joint pain or joint swelling or joint erythema. There is no muscle pain or tenderness or swelling. Extremities: warm, well-perfused, No cyanosis, clubbing, 2+ pulses felt Neurological: Speech is clear, alert, and oriented x 4. No sensory or motor deficits. Cranial nerves II-XII intact. Skin: Warm and dry Discharge instructions: Take Percocet 10-325 mg tablet q.6 p.r.n. for pain Continue your home medication exemestane 25 mg p.o. daily Take ondansetron 8 mg p.o. q.i.d. p.r.n. for nausea/vomiting We discontinued her home medication metformin 500 mg p.o. daily since her hemoglobin A1c level is 5.8 Recommend discussing the same with your primary care physician Primary care physician appointment on December 28 Follow-up with Dr. Brink in 2 weeks Follow up with histopathology report from gallbladder specimen Regular diet, can shower Visit ER immediately in case of any emergencies including abdominal pain, abdominal distention, nausea/vomiting, fever with chill. *Problems/Diagnosis: (1) Acute calculous cholecystitis Status: Acute (2) Prediabetes Status: Chronic (3) History of left breast cancer Status: Resolved Total Time Spent on D/C: > 30 Minutes Counseling Services Smoking & Tobacco Cessation: N/A Date of Service: Dec 17, 2024 Billing Provider: DANITZA ARMSTRONG MD Common Visit Codes: 38055-RSN/OBS DISCH DAY >30min ASIA AU, RES Dec 17, 2024 13:18 DANITZA ARMSTRONG MD Dec 18, 2024 07:04
[2024-12-17 14:41] VITALS: RESP 17
== END 2024-12-17 14:45 | disposition home or self-care (01) | DRG 263 ==
LOC: ER 07:21 → ED HOLD 14:43 → SUR 3N 19:25
PROVIDERS: ADMIT Internal Medicine; ATTEND Internal Medicine
PROC: 8E0W4CZ Robotic Assisted Procedure of Trunk Region, Percutaneous Endoscopic Approach (ICD-10-PCS; 2024-12-15)
PROC: 0FT44ZZ Resection of Gallbladder, Percutaneous Endoscopic Approach (ICD-10-PCS; principal; 2024-12-15 15:21)
DX: K80.00 Calculus of gallbladder with acute cholecystitis without obstruction (principal); E87.20 Acidosis, unspecified; E11.9 Type 2 diabetes mellitus without complications; Z85.3 Personal history of malignant neoplasm of breast; Z90.12 Acquired absence of left breast and nipple; Z92.21 Personal history of antineoplastic chemotherapy; Z87.891 Personal history of nicotine dependence
CPT/HCPCS: 36415; 71045; 74018; 74177; 76700; 80048; 80053; 80061; 80305; 81001; 81025; 82948; 83036; 83690; 83735; 83880; 84100; 84484; 84702; 84703; 85025; 85610; 85730; 87081; 93005; 96365; 96368; 96375; 96376; 99285; A4215; A4618; A7000; G0378; J0131; J0690; J1100; J1171; J1885; J1956; J2003; J2250; J2274; J2405; J2470; J2704; J2710; J3010; J3480; J3490; J7030; J7040; J7120; Q9967